=== PATIENT | male | born 1960 | race Hispanic/Latino ===

== ENCOUNTER 2020-06-10 12:52 | Emergency (ER) | payer SELFPAY ==
[2020-06-10 13:36] LABS: #Basophils 0.1 thou/uL (0.0-0.2); #Eosinphils 0.2 thou/uL (0.0-0.7); #Lymphocytes 3.2 thou/uL (1.20-3.40); #Monocytes 0.6 thou/uL (0.11-0.59); #Neutrophils 7.1 thou/uL (1.40-6.50); %Basophils 1.2 % (0.0-1.0); %Lymphocytes 28.7 % (21.0-51.0); %Monocytes 5.4 % (0.0-10.0); %Neutrophils 62.7 % (42.0-75.0); Hemoglobin 13.8 g/dL (14.0-18.0); Mean Corpuscular HGB CONC 34.2 g/dL (32.0-36.0); Mean Corpuscular Volume 84.8 fL (78.0-98.0); Mean Platelet Volume 7.2 fL (7.4-10.4); Platelet Count 337 thou/uL (130-400); RBC Distribution Width 12.5 % (11.5-14.5); Red Blood Cell (RBC) Count 4.76 mill/uL (4.70-6.10); White Blood Cell (WBC) Count 11.3 thou/uL (4.8-10.8)
[2020-06-10 13:52] LABS: ALT (SGPT) 11 U/L (8-55); AST (SGOT) 15 U/L (5-34); Alkaline Phosphatase 104 U/L (40-110); Anion Gap 16 mmol/L (10-20); BUN (Urea Nitrogen) 14 mg/dL (8.4-25.7); Bilirubin, Total 0.2 mg/dL (0.2-1.2); Calc. Creatinine Clearance 0 mL/min (70-130); Calcium 9.2 mg/dL (7.8-10.44); Carbon Dioxide 22 mmol/L (22-29); Chloride 101 mmol/L (98-107); Estimated GFR-MDRD Greater than 90; Globulin 3.7 g/dL (2.4-3.5); Glucose 239 mg/dL (70-105); Potassium 4.3 mmol/L (3.5-5.1); Protein, Total 7.7 g/dL (6.0-8.3); Sodium 135 mmol/L (136-145)
--- NOTE | 2020-06-10 13:59 | RAD ---
SINGLE VIEW CHEST: Date: 06/10/2020 COMPARISON: None. HISTORY: Right rib and back pain for 5 days. FINDINGS: Single view of the chest shows a normal sized cardiomediastinal silhouette. There is no evidence of c onsolidation, mass, or pleural effusion. Degenerative changes are seen in the spine. IMPRESSION: No evidence of acute cardiopulmonary disease. POS: E[facility]
[2020-06-10] MEDS ORDERED: Ketorolac Tromethamine 30 MG/ML VIAL ONE (16:09)
--- NOTE | 2020-06-18 15:33 | EKG ---
Test Reason : ABD PAIN Blood Pressure : / mmHG Vent. Rate : 097 BPM Atrial Rate : 097 BPM P-R Int : 128 ms QRS Dur : 080 ms QT Int : 340 ms P-R-T Axes : 038 018 054 degrees QTc Int : 431 ms Normal sinus rhythm Nonspecific ST abnormality Abnormal ECG Confirmed by LORI BRIGHT DO ([id number]), assignment desk editor KELLEY CHAPMAN ([id number] on 06/18/2020 3:33:03 PM Referred By: [email or web address] Confirmed By:LORI BRIGHT DO
== END 2020-06-10 16:15 | disposition home or self-care (01) ==
LOC: ERS 12:52
DX: R07.81 Pleurodynia (principal); F17.210 Nicotine dependence, cigarettes, uncomplicated; E11.9 Type 2 diabetes mellitus without complications; I10 Essential (primary) hypertension; Z79.84 Long term (current) use of oral hypoglycemic drugs; Z79.899 Other long term (current) drug therapy
CPT/HCPCS: 71045; 80053; 84484; 85025; 85379; 93005; 96374; J1885

== ENCOUNTER 2020-10-25 08:23 | Emergency (ER) | payer OTHER ==
--- NOTE | 2020-10-25 09:04 | RAD ---
EXAM: Two views chest PROVIDED CLINICAL HISTORY: Chest pain COMPARISON: 06/10/2020 FINDINGS: Cardiac and mediastinal silhouette appears within normal limits. Lungs appear free of significant opa city. No pleural fluid or pneumothorax apparent. IMPRESSION: No evidence for an acute cardiopulmonary process.
[2020-10-25 09:40] LABS: #Basophils 0.1 thou/uL (0.0-0.2); #Eosinphils 0.1 thou/uL (0.0-0.7); #Lymphocytes 1.5 thou/uL (1.20-3.40); #Monocytes 0.9 thou/uL (0.11-0.59); #Neutrophils 5.4 thou/uL (1.40-6.50); %Basophils 0.8 % (0.0-1.0); %Eosinophils 0.8 % (0.0-10.0); %Lymphocytes 18.7 % (21.0-51.0); %Neutrophils 68.6 % (42.0-75.0); Hemoglobin 13.4 g/dL (14.0-18.0); Mean Corpuscular HGB CONC 30.4 g/dL (32.0-36.0); Mean Corpuscular Hemoglobin 26.3 pg (27.0-31.0); Mean Corpuscular Volume 86.5 fL (78.0-98.0); Mean Platelet Volume 6.4 fL (7.4-10.4); Platelet Count 368 thou/uL (130-400); RBC Distribution Width 12.4 % (11.5-14.5); White Blood Cell (WBC) Count 7.9 thou/uL (4.8-10.8)
[2020-10-25 09:57] LABS: ALT (SGPT) 14 U/L (8-55); AST (SGOT) 17 U/L (5-34); Albumin 4.4 g/dL (3.5-5.0); Alkaline Phosphatase 99 U/L (40-110); Anion Gap 19 mmol/L (10-20); BUN (Urea Nitrogen) 14 mg/dL (8.4-25.7); Bilirubin, Total 0.2 mg/dL (0.2-1.2); Calc. Creatinine Clearance 0 mL/min (70-130); Calcium 9.7 mg/dL (7.8-10.44); Carbon Dioxide 23 mmol/L (22-29); Chloride 96 mmol/L (98-107); Globulin 4.1 g/dL (2.4-3.5); Glucose 166 mg/dL (70-105); Lipase 14 U/L (8-78); Potassium 4.7 mmol/L (3.5-5.1); Protein, Total 8.5 g/dL (6.0-8.3); Sodium 133 mmol/L (136-145)
--- NOTE | 2020-10-25 10:36 | CT ---
EXAM: CT Abdomen Pelvis W Con PROVIDED CLINICAL HISTORY: Pain COMPARISON: None FINDINGS: The visualized lung bases are free of significant opacity. There is reduced configuration of the right hepatic lobe. Fatty infiltration of the liver is demonstr ated. The solid abdominal organs demonstrate an otherwise unremarkable CT appearance. There is no bowel dilatation, inflammatory fat stranding, free fluid or free air apparent. There is n o evidence for appendicitis. The gallbladder is decompressed. There is extensive irregular atherosclerotic mural plaque involving the distal abdominal aorta. The p roximal inferior mesenteric artery is not opacified, presumably reflecting occlusion at the origin. There is reconstitution via collaterals. The osseous structures demonstrate no concerning lytic or blastic lesions. IMPRESSION: No evidence for an acute process. Chronic findings as above.
[2020-10-25] MEDS ORDERED: Morphine 4 MG/ML VIAL ONE (10:38)
[2020-10-25] MEDS ORDERED: Ondansetron PF 4 MG/2 ML Vial ONE (10:38)
[2020-10-25 11:07] LABS: Bacteria/HPF None Seen HPF (None Seen); Bilirubin Negative (Negative); Blood, Urine Negative (Negative); Clarity Clear (Clear); Glucose, Urine (Dipstick) 500 mg/dL (Negative); Ketone, Urine Negative (Negative); Leukocyte Negative Leu/uL (Negative); Nitrite Negative (Negative); Protein, Urine (Dipstick) 30 mg/dL (Neg-Trace); RBC/HPF 0-3 HPF (0-3); Specific Gravity, Urine 1.029 (1.002-1.036); Squamous Epithelial None Seen HPF (0-3); Urobilinogen Normal mg/dL (Less than 2); WBC/HPF 0-3 HPF (0-3); pH, Urine 5.5 (5.0-9.0)
[2020-10-25] MEDS ORDERED: Ketorolac Tromethamine 30 MG/ML VIAL ONE (12:12)
[2020-10-25] MEDS ORDERED: Iopamidol-370 76% 500 ML 1 ML ONE (12:49)
== END 2020-10-25 12:49 | disposition home or self-care (01) ==
LOC: ERS 08:23
DX: I73.9 Peripheral vascular disease, unspecified (principal); E11.9 Type 2 diabetes mellitus without complications; I10 Essential (primary) hypertension; F17.210 Nicotine dependence, cigarettes, uncomplicated; Z79.82 Long term (current) use of aspirin; Z79.84 Long term (current) use of oral hypoglycemic drugs; Z79.899 Other long term (current) drug therapy
CPT/HCPCS: 36415; 71046; 74177; 80053; 81003; 81015; 82550; 83690; 84484; 85025; 93005; 96374; 96375; J1885; J2270; J2405; Q9967

== ENCOUNTER 2020-11-30 11:15 | Outpatient (CLI) | payer OTHER ==
--- NOTE | 2020-11-30 12:31 | RAD ---
EXAM: Chest PA and lateral: HISTORY: Disability exam COMPARISON: 10/25/2020 FINDINGS: Heart size:Within normal limits. Lungs:Clear of acute process. No confluent pneumonia, overt edema, pleural effusion, or other acute process. IMPRESSION: No significant acute intrathoracic disease. Stable exam.
== END 2020-11-30 11:16 | disposition home or self-care (01) ==
LOC: BICRAD 11:15
PROVIDERS: ATTEND Psychiatry & Neurology Neurology
DX: Z02.71 Encounter for disability determination (principal)
CPT/HCPCS: 71046

== ENCOUNTER 2022-11-12 11:23 | Emergency (ER) | payer MEDICAID ==
[2022-11-12 12:42] LABS: #Basophils 0.1 thou/uL (0.0-0.2); #Eosinphils 0.2 thou/uL (0.0-0.7); #Lymphocytes 2.5 thou/uL (1.20-3.40); #Monocytes 0.6 thou/uL (0.11-0.59); #Neutrophils 6.1 thou/uL (1.40-6.50); %Basophils 0.9 % (0.0-1.0); %Eosinophils 2.3 % (0.0-10.0); %Lymphocytes 26.2 % (21.0-51.0); %Monocytes 6.1 % (0.0-10.0); %Neutrophils 64.5 % (42.0-75.0); Hemoglobin 13.7 g/dL (14.0-18.0); Mean Corpuscular Hemoglobin 28.7 pg (27.0-31.0); Mean Corpuscular Volume 84.6 fl (78.0-98.0); Platelet Count 301 10x3/uL (130-400); RBC Distribution Width 12.8 % (11.5-14.5); Red Blood Cell (RBC) Count 4.77 mill/uL (4.70-6.10); White Blood Cell (WBC) Count 9.5 10x3/uL (4.8-10.8)
[2022-11-12] MEDS ORDERED: LORazepam 2 MG/ML SYR.(CARPUJECT) ONE (12:51)
[2022-11-12] MEDS ORDERED: Aspirin 325 MG TAB ONE (12:51)
[2022-11-12 13:40] LABS: Albumin 4.3 g/dL (3.4-4.8)
[2022-11-12 13:41] LABS: Chloride 99 mmol/L (98-107); Sodium 136 mmol/L (136-145)
[2022-11-12 13:42] LABS: Calcium 9.5 mg/dL (7.8-10.44); Glucose 195 mg/dL (80-115)
[2022-11-12 13:43] LABS: Globulin 3.8 g/dL (2.4-3.5); Protein, Total 8.1 g/dL (5.8-8.1)
[2022-11-12 13:44] LABS: Anion Gap 20 mmol/L (10-20); Bilirubin, Total 0.3 mg/dL (0.2-1.2); Carbon Dioxide 21 mmol/L (23-31)
[2022-11-12 13:45] LABS: Alkaline Phosphatase 82 U/L (40-110)
[2022-11-12 13:46] LABS: BUN (Urea Nitrogen) 12 mg/dL (8.4-25.7); Calc. Creatinine Clearance 0 mL/min (70-130); Estimated GFR 104
[2022-11-12 13:47] LABS: AST (SGOT) 23 U/L (5-34)
[2022-11-12 13:48] LABS: ALT (SGPT) 20 U/L (8-55)
== END 2022-11-12 15:18 | disposition home or self-care (01) ==
LOC: ERS 11:23
DX: R55 Syncope and collapse (principal); E86.0 Dehydration; E11.9 Type 2 diabetes mellitus without complications; I10 Essential (primary) hypertension; Z79.84 Long term (current) use of oral hypoglycemic drugs; Z79.899 Other long term (current) drug therapy; Z79.82 Long term (current) use of aspirin
CPT/HCPCS: 70450; 80053; 84484; 85025; 93005; 96374; J2060

== ENCOUNTER 2023-01-31 07:57 | Outpatient (CLI) | payer OTHER, MEDICAID | END 2023-01-31 07:58 | disposition home or self-care (01) | LOC: ULT 07:57 | PROVIDERS: ATTEND Family Medicine | DX: Z13.6 Encounter for screening for cardiovascular disorders (principal) | CPT/HCPCS: 76775 ==

== ENCOUNTER 2023-02-08 07:42 | Outpatient (CLI) | payer OTHER, MEDICAID ==
[2023-02-08] MEDS ORDERED: Iopamidol 370 76% 100 ML VIAL ONE (09:55)
== END 2023-02-08 07:43 | disposition home or self-care (01) ==
LOC: CT 07:42
PROVIDERS: ATTEND Family Medicine
DX: I71.40 Abdominal aortic aneurysm, without rupture, unspecified (principal); I70.0 Atherosclerosis of aorta; I72.3 Aneurysm of iliac artery
CPT/HCPCS: 74174; 82565; Q9967